=== PATIENT | male | born 1980 | race Hispanic/Latino ===

== ENCOUNTER 2024-05-26 08:39 | Day surgery (SDC) | payer OTHER ==
[2024-05-26] MEDS: NA CHLORIDE 0.9% 1,000 ML ONE (08:39)
[2024-05-26 09:11] LABS: Anion Gap 8.8 mEq/L (5.0-15.0); Potassium 3.8 mEq/L (3.5-5.1)
[2024-05-26 09:55] LABS: Absolute Eosinophils 0.3 K/uL (0-0.5); Absolute Lymphocytes (CBC) 1.6 K/uL (0.7-4.9); Absolute Monocytes 0.5 K/uL (0.1-1.3); Absolute Neutrophil 3.3 K/uL (1.8-8.0); Basophils % 0.7 % (0-1.3); Eosinophils % 5.2 % (0-4.4); Hematocrit 30.1 % (39.6-49.0); Hemoglobin 10.3 g/dL (13.6-17.9); Lymphocytes % 27.5 % (15.3-44.8); MCH 32.3 pg (27.0-35.0); MCHC 34.2 g/dL (32.0-36.0); MCV 94.5 fL (80-100); MPV 7.5 fL (7.6-11.3); Neutrophils % 57.6 % (41.7-73.7); Nucleated Red Blood Cells % 0.1 % (0-0); Platelets 205 thou/uL (152-406); RBC Red Blood Cell Count 3.19 M/uL (4.33-5.43); Red Cell Distribution Width 15.8 % (12.1-15.2)
[2024-05-26] MEDS: CEFAZOLIN SODIUM 2 GM/VIAL ONE (10:48)
[2024-05-26] MEDS ORDERED: LIDOCAINE 2% MPF 5 ML VIAL ONE (11:06)
[2024-05-26] MEDS ORDERED: ONDANSETRON 4 MG/2 ML VIAL ONE (11:06)
[2024-05-26] MEDS ORDERED: propofoL 200 MG/20 ML VIAL IV ONE (11:06)
[2024-05-26] MEDS ORDERED: ROCURONIUM 50 MG/5 ML VIAL IV ONE ×2 (11:06→12:30)
[2024-05-26] MEDS ORDERED: MIDAZOLAM HCL 2 MG/2 ML INJ ONE (11:06)
[2024-05-26] MEDS ORDERED: FENTANYL CITR 100 MCG/2 ML ONE (11:06)
[2024-05-26] MEDS ORDERED: SUCCINYLCHOLINE 20 MG/ML (10 ML) IV ONE (11:30)
[2024-05-26] MEDS ORDERED: FAMOTIDINE 20 MG/2 ML VIAL IV ONE (11:30)
[2024-05-26] MEDS ORDERED: Phenylephrine HCl 10 MG/ML 1 ML VIAL ONE (12:22)
[2024-05-26] MEDS: LIDOCAINE HCL/EPINEPHRINE 20 ML MDV ONE (12:28)
--- NOTE | 2024-05-26 12:54 | P.OP ---
Preoperative diagnosis: End Stage Renal Disease Postoperative diagnosis: End Stage Renal Disease Primary procedure: Laparoscopic Placement of Peritoneal Dialysis Catheter Anesthesia: GETA + Local Estimated blood loss: <5cc Specimen: none Findings: cath flushed and withdrew well Complications: None () Implants: Abdalla Double Cuffed PD catheter - standard Transferred to: Recovery Room Condition: Good
[2024-05-26] MEDS: HEPARIN 500 UNIT/5 ML SYR IV ONE (12:55)
[2024-05-26] MEDS: HYDROMORPHONE HCL 1 MG/ML INJ ONE (13:10)
[2024-05-26] MEDS ORDERED: SUGAMMADEX SODIUM 200 MG/2 ML VIAL IV ONE (13:15)
[2024-05-26] MEDS: FENTANYL CITR 100 MCG/2 ML ONE (13:25)
[2024-05-26 14:09] VITALS: BP 161/102; TEMP 97; O2SAT 98
[2024-05-26] MEDS: HYDROCODONE/APAP 7.5/325 MG TAB ONE (14:22)
--- NOTE | 2024-05-26 23:15 | OP ---
Date of Procedure: 05/26/2024 Surgeon: Kelvin Hunter MD, Preoperative Diagnosis: End-stage renal disease. Postoperative Diagnosis: End-stage renal disease. Procedure Performed: Laparoscopic peritoneal dialysis catheter placement. Anesthesia: General endotracheal plus local, 1% lidocaine. Estimated Blood Loss: 5 cc. Specimen: None. Findings: Catheter flushed quite well and withdrew quite well. Complications: None. Implants: Merit double cuffed standard peritoneal dialysis catheter placed on the left abdominal keyla e. Disposition: The patient was transferred to recovery room in good condition. Procedure In Detail: After informed consent was obtained, the patient was prepped and draped in the usual sterile fashion. After adequate anesthesia was achieved, I prestenciled the patient's abdomen with a marking stencil set from [employer] for the Merit peritoneal double cuffed dialysis catheter. At t his point, I anesthetized an area in the left upper quadrant. A 5 mm 0-degree optical trocar was int roduced into the abdomen without incident or complication. Insufflation was obtained to 15 mmHg at t his time. There was no injury to vital structures upon entry into the abdomen. At this point, I ma de an incision overlying the premarkings on the left abdominal wall near the periumbilical region fol lowing the preset stencil marking. At this point, I placed the introducer sheath, placing it toward the patient's pelvis, aiming at the coccyx area. I then dilated up the introducer sheath after remov ing the inner cannula. I then placed the Merit double cuffed peritoneal dialysis catheter with the m edial curl into the pelvis quite deep at this point, placing the distal cuff just distal to the anter ior rectus sheath. I then brought out the tunneling device and ultimately placed the catheter tunnel ing device about the left mid upper abdomen. At this point, the catheter was blowing air quite aggre ssively. I placed a cap on the area and flushed it and fluid withdrew immediately without issue. At this point, the patient positioned back in neutral position. I then packed the catheter with hepari n and the abdomen was desufflated under direct vision without incident or complication. I then remov ed all trocars under direct vision without incident or complication. All skin incisions were then co piously irrigated and closed with a 4-0 Monocryl in a running fashion. Dermabond was placed over top . The patient tolerated the procedure without incident or complication and transferred to PACU in go od condition. All counts were correct at the end of the case. THOMAS/[place] Voice ID: [id number] Report ID: [id number]
== END 2024-05-26 14:40 | disposition home or self-care (01) ==
LOC: OR 08:39
PROVIDERS: ATTEND Surgery
PROC: 0WHG43Z Insertion of Infusion Device into Peritoneal Cavity, Percutaneous Endoscopic Approach (ICD-10-PCS; principal; 2024-05-26 11:30)
DX: N18.6 End stage renal disease (principal)
CPT/HCPCS: 36415; 80048; 85025; J1171; J1642; J2003; J2250; J2371; J2405; J2704; J3010; J7030

== ENCOUNTER 2024-08-05 12:03 | Day surgery (SDC) | payer OTHER ==
[2024-08-03 10:26] LABS: Absolute Eosinophils 0.3 K/uL (0-0.5); Absolute Lymphocytes (CBC) 1.6 K/uL (0.7-4.9); Absolute Monocytes 0.5 K/uL (0.1-1.3); Absolute Neutrophil 5.5 K/uL (1.8-8.0); Basophils % 0.4 % (0-1.3); Eosinophils % 4.4 % (0-4.4); Hematocrit 34.1 % (39.6-49.0); Hemoglobin 11.8 g/dL (13.6-17.9); Lymphocytes % 19.7 % (15.3-44.8); MCH 32.8 pg (27.0-35.0); MCHC 34.6 g/dL (32.0-36.0); MCV 94.7 fL (80-100); MPV 7.5 fL (7.6-11.3); Monocytes % 5.9 % (3.3-12.3); Neutrophils % 69.6 % (41.7-73.7); Platelets 334 thou/uL (152-406); Red Cell Distribution Width 14.6 % (12.1-15.2)
[2024-08-03 11:10] LABS: Anion Gap 10.9 mEq/L (5.0-15.0); Potassium 3.9 mEq/L (3.5-5.1)
[2024-08-05] MEDS ORDERED: NA CHLORIDE 0.9% 0 ML ONE (12:14)
[2024-08-05] MEDS: NA CHLORIDE 0.9% 500 ML ONE ×2 (15:11→16:26)
[2024-08-05] MEDS ORDERED: MIDAZOLAM HCL 2 MG/2 ML INJ ONE (15:14)
[2024-08-05] MEDS ORDERED: propofoL 200 MG/20 ML VIAL IV ONE (15:14)
[2024-08-05] MEDS ORDERED: FENTANYL CITR 100 MCG/2 ML ONE (15:14)
[2024-08-05] MEDS ORDERED: ROCURONIUM 50 MG/5 ML VIAL IV ONE (15:14)
[2024-08-05] MEDS: LIDOCAINE HCL/EPINEPHRINE 20 ML MDV ONE (15:22)
[2024-08-05] MEDS ORDERED: SUCCINYLCHOLINE 20 MG/ML (10 ML) IV ONE (15:22)
[2024-08-05] MEDS: CEFAZOLIN SODIUM 2 GM/VIAL ONE (15:22)
[2024-08-05] MEDS: HEPARIN 500 UNIT/5 ML SYR IV ONE (15:23)
[2024-08-05] MEDS ORDERED: GLYCOPYRROLATE 0.2 MG/ML SYR ONE (16:29)
[2024-08-05] MEDS ORDERED: NEOSTIGMINE 1 MG/ML -10 ML VIAL ONE (16:29)
--- NOTE | 2024-08-05 16:35 | P.OP ---
Preoperative diagnosis: Peritoneal Dialysis Catheter Dysfunction Postoperative diagnosis: Peritoneal Dialysis Catheter Dysfunction Primary procedure: Laparoscopic Removal and Replacement of Pertioneal Dialysis Catheter Anesthesia: GETA + Local Estimated blood loss: <10cc Specimen: Peritoneal Catheter for ID only Findings: Proir catheter migrated anterior and superiorly due to small bowel Complications: None Drain(s): Other (Abdalla Double Cuff PD Catheetr) Transferred to: Recovery Room Condition: Good
[2024-08-05] MEDS: FENTANYL CITR 100 MCG/2 ML ONE (17:05)
[2024-08-05] MEDS: HYDROMORPHONE HCL 1 MG/ML INJ ONE (17:20)
[2024-08-05] MEDS: KETOROLAC 30 MG/ML INJ ONE (17:30)
[2024-08-05] MEDS ORDERED: HYDROCODONE/APAP 10/325 TAB ONE (17:50)
[2024-08-05 17:54] VITALS: BP 158/93; TEMP 97.2; O2SAT 97
[2024-08-05] MEDS: HYDROCODONE/APAP 10/325 TAB PO ONE (17:55)
--- NOTE | 2024-08-05 23:42 | OP ---
Date of Procedure: 08/05/2024 Surgeon: Kelvin Hunter MD, Preoperative Diagnosis: Peritoneal dialysis catheter dysfunction. Postoperative Diagnosis: Peritoneal dialysis catheter dysfunction. Procedure Performed: Laparoscopic removal and laparoscopic replacement of peritoneal dialysis cathet er. Anesthesia: General endotracheal plus local with 1% lidocaine with epinephrine. Estimated Blood Loss: 10 cc. Specimens: Peritoneal dialysis catheter for ID only. Findings: Prior catheter had migrated anteriorly and superiorly due to small bowel. Complications: None. Implants/drains: Merit double cuffed peritoneal dialysis catheter placed. Disposition: The patient was transferred to recovery room in good condition. Procedure In Detail: After informed consent was obtained, the patient was brought to the operating r oom, prepped and draped in usual sterile fashion. After adequate anesthesia was achieved, I anesthet ized an area in the left upper quadrant down to subcutaneous tissues. A 5 mm 0-degree optical trocar was introduced into the abdomen without incident or complication. Insufflation was obtained to 15 m mHg at this time. There was no injury to vital structures upon entry into the abdomen. Additional t rocar was placed in the left lower abdomen. This was similarly anesthetized, sharply incised, and a 5 mm trocar was placed under direct vision without incident or complication. I examined the abdomen at this point and found that the previously placed peritoneal dialysis catheter had been looped throu gh a loop of small bowel and was sitting anterior and superior from previous initial implantation pos ition. At this point, I opted to remove it and replace it and so at this point, the patient had pre- stent landmark for a deeper pelvic implantation lower in the pelvis and therefore at this point, I ma de an incision inferior to the previously placed insertion cuff site along the distribution of the re ctus sheath 3 to 4 cm inferior from the previous placement. I then used the introducer sheath, place d it towards the patient's coccyx and placed the dilator through this tract. I then inserted a jason ter with the medial coil deep in the pelvis, 3 to 4 cm deep within the previous placement. At this p oint, I then brought out the tunneling device and attached it to the catheter and brought out the lef t lateral more superior lateral course in the previously placed catheter. At this point, the cathete r was functioning quite well on its own without any stimulation. It was blowing air and fluid out at this point, which was previously residual in the pelvis. At this point, I capped it and opted to re move the other catheter. I made a counter incision overlying the previous catheter insertion site, d issected down to find the catheter cuff, pulled it out of the rectus sheath and dissected circumferen tially around using electrocautery. At this point, the distal cuff required some dilation and incisi on at the insertion site from the previous catheter to remove it. The cup was brought into the field and ultimately removed after circumferential dissection was performed. The catheter was sent in [facility] for ID only at this point, and the tract was irrigated copiously. There was no additio nal maneuvers required at this point. No hemostasis was required. I then closed all the larger inci sions larger than 5 mm using a 3-0 Vicryl deep dermal stitch and the skin was closed using a 4-0 Adair cryl in a running fashion. Dermabond placed over top. The abdomen was desufflated at this point und er direct vision without incident or complication. The remaining trocars removed. All remaining ski n incision was copiously irrigated and closed with the same set 4-0 Monocryl in a running fashion and Dermabond placed over top. The catheter was then packed with heparin flush at this point and capped once again. The patient tolerated the procedure without incident or complication and transferred to PACU in good condition. All counts were correct at the e nd of the case. THOMAS/[place] Voice ID: [id number] Report ID: [id number]
== END 2024-08-05 18:31 | disposition home or self-care (01) ==
LOC: OR 12:03
PROVIDERS: ATTEND Surgery
PROC: 0WPG03Z Removal of Infusion Device from Peritoneal Cavity, Open Approach (ICD-10-PCS; 2024-08-05)
PROC: 0WHG43Z Insertion of Infusion Device into Peritoneal Cavity, Percutaneous Endoscopic Approach (ICD-10-PCS; principal; 2024-08-05 15:15)
DX: N18.6 End stage renal disease (principal); T82.41XA Breakdown (mechanical) of vascular dialysis catheter, initial encounter
CPT/HCPCS: 49324; 36590; 85025; 80048; 36415; 82947 ×2; 88300; J2704; J2710; J2250; J3010 ×2; J1171; J1642; J7040 ×2; J7030